=== PATIENT | female | born 1985 | race Caucasian/White ===

== ENCOUNTER 2020-01-20 12:48 | Emergency (ER) | payer OTHER, SELFPAY ==
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
[2020-01-20 13:32] VITALS: BP 130/80; PULSE 76; RESP 20; TEMP 36.8; O2SAT 98
[2020-01-20] MEDS: HYDROcodone/acetaminophen (*CRX) 5-325 MG TABLET 1 TAB PO (14:30)
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
[2020-01-20 15:43] VITALS: BP 129/80; PULSE 80; RESP 18; TEMP 37.2; O2SAT 99
--- NOTE | 2020-01-22 11:34 | PC.NURSE ---
LATE ENTRY This note is being entered to document information to the patient's record. The following information was omitted on [01/20/20], by JOE Hauser. Metal finger splint was applied to L 4th digit per EDP [facility]
== END 2020-01-20 15:44 | disposition home or self-care (01) ==
PROVIDERS: Emergency Provider Emergency Medicine
DX: S62.637A Displaced fracture of distal phalanx of left little finger, initial encounter for closed fracture (principal); V49.40XA Driver injured in collision with unspecified motor vehicles in traffic accident, initial encounter; S16.1XXA Strain of muscle, fascia and tendon at neck level, initial encounter; F32.9 Major depressive disorder, single episode, unspecified
CPT/HCPCS: 29130; 72125; 73090; 73130; 99284; A9270